=== PATIENT | male | born 1965 | race Caucasian/White ===

== ENCOUNTER 2020-07-18 18:27 | Emergency (ER) | payer OTHER ==
[~2020-07-18] VITALS: Ht 165.1 cm; Wt 77.1 kg
[2020-07-18] MEDS ORDERED: AFRIN15 M2 (21:18)
[2020-07-18] MEDS ORDERED: AMOCLA875 PO (21:18)
== END 2020-07-18 21:32 | disposition home or self-care (01) ==
LOC: ER 18:27
DX: S02.32XA Fracture of orbital floor, left side, initial encounter for closed fracture (principal); F17.200 Nicotine dependence, unspecified, uncomplicated; W01.198A Fall on same level from slipping, tripping and stumbling with subsequent striking against other object, initial encounter
CPT/HCPCS: 70486; 99283-25; A9270